=== PATIENT | female | born 1950 | race Caucasian/White ===

== ENCOUNTER → 2020-10-22 | Outpatient (CLI) | payer OTHER ==
[~2020-10-22] MED LIST: ADVIL PM CAPLE1 EACH PO; RELAFEN750 MG PO; ZOCOR 20 MG TAB20 M1 PO
== END ==
LOC: SJCVCIMAG 08:24
PROVIDERS: ATTEND Internal Medicine
DX: R07.9 Chest pain, unspecified (principal); J98.4 Other disorders of lung; Z79.82 Long term (current) use of aspirin; Z79.899 Other long term (current) drug therapy